=== PATIENT | female | born 1990 | race Caucasian/White ===

== ENCOUNTER 2021-01-12 20:17 | Emergency (ER) | payer BC ==
[~2021-01-12 20:17] MED LIST: AUGMENTIN 875-1 EACH PO; BACTRIM DS TAB1 EACH PO; BACTROBAN OINT22 GM EXT; FLONASE 0.05% N16 GM; IBUPROFEN600 MG PO; LEXAPRO20 MG PO; LODINE CAP 300300 MG PO; NORCO 5-325 TA1 EACH PO; PERCOCET 5/325 T1 EA PO; SUDOGEST60 MG PO; ZANTAC300 MG PO
== END 2021-01-12 22:08 | disposition home or self-care (01) ==
LOC: ER1 20:17
DX: R05 Cough (principal); Z20.822 Contact with and (suspected) exposure to COVID-19
CPT/HCPCS: 99283; U0002

== ENCOUNTER 2021-05-11 00:08 | Emergency (ER) | payer BC | END 2021-05-11 03:00 | disposition left against medical advice (07) | LOC: ER1 00:08 | DX: Z53.21 Procedure and treatment not carried out due to patient leaving prior to being seen by health care provider (principal) | CPT/HCPCS: 71046; 93005 ==

== ENCOUNTER → 2021-07-08 | Outpatient (CLI) | payer BC | LOC: NM 07-04 15:00 | DX: R06.02 Shortness of breath (principal) | CPT/HCPCS: 78580; A9540 ==

== ENCOUNTER 2021-10-03 10:17 | Emergency (ER) | payer BC ==
[2021-10-03] MEDS ORDERED: IBUPROFEN600 MG PO (12:22)
== END 2021-10-03 11:23 | disposition home or self-care (01) ==
LOC: ER1 10:17
DX: S93.402A Sprain of unspecified ligament of left ankle, initial encounter (principal); E11.9 Type 2 diabetes mellitus without complications; I10 Essential (primary) hypertension; Z88.5 Allergy status to narcotic agent; Z88.8 Allergy status to other drugs, medicaments and biological substances; X58.XXXA Exposure to other specified factors, initial encounter
CPT/HCPCS: 73600; 96372; 99283; J1885

== ENCOUNTER 2021-10-12 11:53 | Emergency (ER) | payer BC ==
[~2021-10-12] VITALS: Ht 172.7 cm; Wt 142.9 kg
== END 2021-10-12 22:29 | disposition home or self-care (01) ==
LOC: ER1 11:53
DX: U07.1 COVID-19 (principal); Z23 Encounter for immunization; E11.9 Type 2 diabetes mellitus without complications; E66.9 Obesity, unspecified
CPT/HCPCS: 71045; 96374; 96375; 99285; J1885; J2405; M0243

== ENCOUNTER 2021-10-18 17:12 | Emergency (ER) | payer BC ==
[2021-10-18 18:37] LABS: HEMOGLOBIN 16.3 gm/dl (12.3-15.3); RED BLOOD COUNT 5.56 M/UL (4.00-5.10); WHITE BLOOD COUNT 11.9 K/UL (4.5-11.0)
[2021-10-18 19:03] LABS: BUN/CREATININE RATIO 20 (0-10)
[2021-10-18] MEDS ORDERED: OMNICEF 300 MG300 MG PO (22:20)
[2021-10-18] MEDS ORDERED: PROAIR HFA8.5 GM INH (22:20)
== END 2021-10-18 22:51 | disposition home or self-care (01) ==
LOC: ER1 17:12
PROVIDERS: Physician Assistant Medical
DX: U07.1 COVID-19 (principal); E11.9 Type 2 diabetes mellitus without complications; Z79.84 Long term (current) use of oral hypoglycemic drugs; Z88.5 Allergy status to narcotic agent
CPT/HCPCS: 71045; 80053; 81001; 85025; 99283

== ENCOUNTER 2022-01-11 11:33 | Emergency (ER) | payer BC ==
[~2022-01-11 11:33] MED LIST changes: +OMNICEF 300 MG300 MG PO; +PROAIR HFA8.5 GM INH
[2022-01-11 12:14] LABS: HEMOGLOBIN 14.2 gm/dl (12.3-15.3); RED BLOOD COUNT 4.79 M/UL (4.00-5.10); WHITE BLOOD COUNT 15.8 K/UL (4.5-11.0)
[2022-01-11 13:31] LABS: BUN/CREATININE RATIO 13 (0-10)
[2022-01-11] MEDS ORDERED: CEPHALEXIN500 M1 PO (14:31)
[2022-01-11] MEDS ORDERED: IBUPROFEN800 MG PO (14:31)
== END 2022-01-11 15:50 | disposition home or self-care (01) ==
LOC: ER1 11:33
PROVIDERS: Physician Assistant
DX: J40 Bronchitis, not specified as acute or chronic (principal); J02.0 Streptococcal pharyngitis; N39.0 Urinary tract infection, site not specified; Z20.822 Contact with and (suspected) exposure to COVID-19; E11.9 Type 2 diabetes mellitus without complications; Z88.5 Allergy status to narcotic agent; Z88.1 Allergy status to other antibiotic agents
CPT/HCPCS: 0240U; 71045; 80053; 81001; 82550; 82553; 83605; 84484; 84703; 85025; 85379; 87040; 87081; 87086; 87880; 93005; 96374; 99285; J2405

== ENCOUNTER 2022-07-16 19:34 | Emergency (ER) | payer BC ==
[~2022-07-16 19:34] MED LIST changes: +CEPHALEXIN500 M1 PO; +IBUPROFEN800 MG PO
[2022-07-16 21:41] LABS: HEMOGLOBIN 14.9 gm/dl (12.3-15.3); RED BLOOD COUNT 5.06 M/UL (4.00-5.10)
[2022-07-16 22:09] LABS: BUN/CREATININE RATIO 21 (0-10)
[2022-07-16] MEDS ORDERED: OMNICEF 300 MG300 MG PO (23:21)
== END 2022-07-17 00:28 | disposition home or self-care (01) ==
LOC: ER1 19:34
PROVIDERS: Student in an Organized Health Care Education/Training Program
DX: E11.65 Type 2 diabetes mellitus with hyperglycemia (principal); N39.0 Urinary tract infection, site not specified; Z88.1 Allergy status to other antibiotic agents
CPT/HCPCS: 71045; 80053; 81001; 82009; 82550; 82553; 82962; 84484; 84703; 85025; 93005; 96374; 96375; 99285; J0696